=== PATIENT | female | born 1945 | race Caucasian/White ===

== ENCOUNTER 2018-10-21 08:45 | Day surgery (SDC) | payer OTHER ==
[2018-10-21] MEDS ORDERED: NA CHLORIDE 0.9% 500 ML ONE (09:22)
[2018-10-21] MEDS: CYCLOPENTOLATE 1% OPTH 2 ML ONE ×3 (09:30→09:50)
[2018-10-21] MEDS: PHENYLEPHRINE 10% OPTH 5ML ONE ×3 (09:30→09:50)
[2018-10-21] MEDS ORDERED: LIDOCAINE 1% MPF 5 ML VIAL ONE (09:34)
[2018-10-21] MEDS ORDERED: BALANCED SALT IRRIG PLAIN 500 ML BTL IRR ONE (09:57)
[2018-10-21] MEDS ORDERED: EPINEPHRINE/PF 1 MG/ML AMP ONE (09:57)
[2018-10-21] MEDS ORDERED: DUOVISC 1 KIT OPTH ONE (09:57)
[2018-10-21] MEDS ORDERED: NS 0.9% VIAL 10 ML ONE (09:57)
[2018-10-21] MEDS ORDERED: LIDOCAINE 1% MPF 2 ML AMPULE ONE (09:58)
[2018-10-21] MEDS ORDERED: MOXIFLOXACIN HCL 10 DROPS/ML **OR USE OPTH ONE (09:58)
[2018-10-21] MEDS: LIDOCAINE 2% MPF 5 ML VIAL ONE ×2 (10:13→10:50)
[2018-10-21] MEDS: TETRACAINE HCL 0.5% 2ML OPTH ONE ×2 (10:13→10:49)
[2018-10-21] MEDS: BUPIVACAINE 0.25% PF 10 ML VIAL ONE ×2 (10:14→10:50)
[2018-10-21] MEDS ORDERED: PROPOFOL 200 MG/20 ML VIAL IV ONE (10:21)
--- NOTE | 2018-10-21 11:28 | P.BOP ---
Preoperative diagnosis: Nuclear sclerotic and cortical cataract OD Postoperative diagnosis: Same Primary procedure: Phacoemulsification with IOL OD Estimated blood loss: None Anesthesia: Local (Subtenon's infusion with anesthesia for cataract surgery) Complications: None Implants: ZCB00 +16.0 Transferred to: Other (Day surgery) Condition: Good
--- NOTE | 2018-10-21 22:57 | OP ---
Date of Procedure: 10/21/2018 Surgeon: Sarah Rodrigues MD Anesthesiologist: Cyndee Horn CRNA and Carlos Villa CRNA and Jeremi Diehl MD. Preoperative Diagnoses: Nuclear sclerotic and cortical cataract, right eye. Operation Performed: Phacoemulsification with intraocular lens implant, right eye. Anesthesia: Per cataract surgery. Complications: None. Description Of Procedure: In day surgery, the patient was prepped with Betadine and draped. A conju nctival incision was made in the inferior nasal quadrant with Therese scissors. A sub-Tenon block c onsisting of a 1:1 mixture of 2% Xylocaine and 0.25% bupivacaine was placed through the conjunctival incision with a blunt cannula. A Honan balloon was placed over the eye and the patient was transferr ed to the operating room. In the operating room the patient was prepped and draped in the usual sterile fashion for ophthalmic surgery. A lid speculum was placed in the right eye. Two paracentesis sites were made superiorly an d inferiorly in the limbal cornea. Viscoat was placed in the anterior chamber and a crescent blade w as used to make a corneal groove and tunnel, and a keratome was used to enter the anterior chamber. Provisc was placed in the anterior chamber and a 360 degree capsulotomy was performed with a cystitom e. The lens was hydrodissected with BSS and rotated freely. The lens was removed with a stop and ch op technique. 6.10 phaco CDE was used to remove the lens. Residual cortex was removed with the irri gation and aspiration. Provisc was placed in the capsular bag. A ZCB00 +16.0 lens was placed in the capsular bag without complications. Irrigation and aspiration were used to remove residual viscoela stic. The paracentesis sites were hydrated with BSS. The wound and paracentesis sites were inspecte d and found to be watertight. Vigamox 0.07 cc was placed intracamerally at the end of the procedure. The eye was irrigated with balanced salt solution. The eye was patched with a soft cotton patch an d White metal shield. The patient was returned to day surgery in good condition. Comments: Discharge Instructions: Ms. Morris is discharged to home in good condition and is to follow up with Dr. Rodrigues in the morning. ROSI/JOSEPH Voice ID: [id number] Report ID: [id number]
== END 2018-10-21 12:05 | disposition home or self-care (01) ==
LOC: OR 08:45
PROVIDERS: ATTEND Ophthalmology Retina Specialist
PROC: 08RJ3JZ Replacement of Right Lens with Synthetic Substitute, Percutaneous Approach (ICD-10-PCS; principal; 2018-10-21 10:15)
DX: H25.11 Age-related nuclear cataract, right eye (principal); H25.011 Cortical age-related cataract, right eye; I10 Essential (primary) hypertension; Z88.0 Allergy status to penicillin; Z83.518 Family history of other specified eye disorder; Z82.49 Family history of ischemic heart disease and other diseases of the circulatory system; Z83.3 Family history of diabetes mellitus
CPT/HCPCS: 66984; J0171; J2001; J2704

== ENCOUNTER 2019-04-28 06:52 | Day surgery (SDC) | payer OTHER ==
--- OUTSIDE RECORDS SUMMARY | 2019-04-28 06:56 | XMS REPORT ---
:1945 [facility] Address [address] [place] [address] Dr. Fregoso [address] [place] [id number] Care Team Providers Name Role Phone Unavailable Unavailable Unavailable Problems This patient has no known problems. Allergies, Adverse Reactions, Alerts This patient has no known allergies or adverse reactions. Medications This patient has no known medications.
[2019-04-28] MEDS ORDERED: NA CHLORIDE 0.9% 500 ML ONE (07:14)
[2019-04-28] MEDS ORDERED: PHENYLEPHRINE 10% OPTH 5ML ONE (07:14)
[2019-04-28] MEDS ORDERED: BUPIVACAINE 0.25% PF 10 ML VIAL ONE (07:15)
[2019-04-28] MEDS ORDERED: TETRACAINE HCL 0.5% 4ML OPTH ONE (07:15)
[2019-04-28] MEDS ORDERED: LIDOCAINE 2% MPF 5 ML VIAL ONE (07:15)
[2019-04-28] MEDS ORDERED: CYCLOPENTOLATE 1% OPTH 2 ML ONE (07:15)
[2019-04-28] MEDS ORDERED: LIDOCAINE HCL/PF 3.5% OPTH GEL ONE (07:16)
[2019-04-28] MEDS ORDERED: PHENYLEPHRINE 10% OPTH 5ML OPTH ONE ×3 (07:22→07:40)
[2019-04-28] MEDS ORDERED: CYCLOPENTOLATE 1% OPTH 2 ML OPTH ONE ×3 (07:22→07:40)
[2019-04-28] MEDS: LIDOCAINE HCL/PF 3.5% OPTH GEL OPTH ONE ×2 (07:41→08:08)
[2019-04-28] MEDS ORDERED: EPINEPHRINE/PF 1 MG/ML AMP ONE (07:43)
[2019-04-28] MEDS ORDERED: NS 0.9% VIAL 10 ML ONE (07:43)
[2019-04-28] MEDS ORDERED: DUOVISC 1 KIT OPTH ONE (07:44)
[2019-04-28] MEDS ORDERED: BALANCED SALT IRRIG PLAIN 500 ML BTL IRR ONE (07:44)
[2019-04-28] MEDS ORDERED: LIDOCAINE 1% MPF 2 ML AMPULE ONE (07:46)
[2019-04-28] MEDS ORDERED: MOXIFLOXACIN HCL 10 DROPS/ML **OR USE OPTH ONE (07:46)
[2019-04-28] MEDS ORDERED: BSS OPTHALMIC SOL 15 ML BOT OPTH ONE (08:06)
[2019-04-28] MEDS ORDERED: FENTANYL CITR 100 MCG/2 ML ONE (08:15)
[2019-04-28] MEDS ORDERED: MIDAZOLAM HCL 2 MG/2 ML INJ ONE ×2 (08:15→08:27)
--- NOTE | 2019-04-28 08:51 | P.BOP ---
Preoperative diagnosis: Nuclear sclerotic and posterior subcapsular cataract OS Postoperative diagnosis: Same Primary procedure: Phacoemulsification with IOL OS Estimated blood loss: None Anesthesia: Local (Topical with anesthesia for cataract surgery) Complications: None Implants: ZCB00 +20.0 Transferred to: Other (Day surgery) Condition: Good
--- NOTE | 2019-04-28 20:19 | OP ---
Date of Procedure: 04/28/2019 Surgeon: Sarah Rodrigues MD Anesthesiologist: Francois Monaco CRNA; and Ivan Bhardwaj MD. Preoperative Diagnosis: Nuclear sclerotic and posterior subcapsular cataract, left eye. Operation Performed: Phacoemulsification with intraocular lens implant, left eye. Anesthesia: Per cataract surgery. Complications: None. Description Of Procedure: In the operating room the patient was prepped and draped in the usual ster ile fashion for ophthalmic surgery. A lid speculum was placed in the left eye. Two paracentesis sit es were made superiorly and inferiorly in the limbal cornea. Viscoat was placed in the anterior miguel sy and a crescent blade was used to make a corneal groove and tunnel, and a keratome was used to ent er the anterior chamber. Provisc was placed in the anterior chamber and a 360 degree capsulotomy was performed with a cystitome. The lens was hydrodissected with BSS and rotated freely. The lens was removed with a stop and chop technique. A 5.10 phaco CDE was used to remove the lens. Residual melita ex was removed with the irrigation and aspiration. Provisc was placed in the capsular bag. A ZCB00, +20.0 lens was placed in the capsular bag without complications. Irrigation and aspiration was used to remove residual viscoelastic. The paracentesis sites were hydrated with BSS. The wound and para centesis sites were inspected and found to be watertight. Vigamox 0.07 cc was placed intracamerally at the end of the procedure. The eye was irrigated with balanced salt solution. The eye was patched with a soft cotton patch and White metal shield. The patient was returned to day surgery in good condition. Comments: Akten was placed in the eye in Day Surgery and irrigated out of the eye with BSS in the OR . Preservative-free 1% lidocaine was placed in the anterior chamber prior to Viscoat. Discharge Instructions: Ms. Morris was discharged to home in good condition and is to follow up with Dr. Rodrigues. ROSI/MODL Voice ID: [id number] Report ID: [id number]
== END 2019-04-28 09:25 | disposition home or self-care (01) ==
LOC: OR 06:52
PROVIDERS: ATTEND Ophthalmology Retina Specialist
PROC: 08RK3JZ Replacement of Left Lens with Synthetic Substitute, Percutaneous Approach (ICD-10-PCS; principal; 2019-04-28 08:30)
DX: H25.12 Age-related nuclear cataract, left eye (principal); H25.042 Posterior subcapsular polar age-related cataract, left eye; I10 Essential (primary) hypertension; K21.9 Gastro-esophageal reflux disease without esophagitis; Z88.0 Allergy status to penicillin; Z83.3 Family history of diabetes mellitus; Z82.49 Family history of ischemic heart disease and other diseases of the circulatory system; Z83.518 Family history of other specified eye disorder
CPT/HCPCS: 66984; J0171; J2250 ×2; J3010; J2001